=== PATIENT | male | born 1975 | race American Indian/Alaskan Native ===

== ENCOUNTER 2016-05-10 10:45 | Inpatient (IN) | payer OTHER ==
--- NOTE | 2016-05-10 11:30 | Emergency Department Report ---
Chief Complaint: Nausea/Vomiting/Diarrhea Stated Complaint: N/V Time Seen by Provider: 05/10/16 11:25 - HPI History of Present Illness: 41 y/o male complain of n/v/d x 4 days .pt state that at his job some of coworker have had the same complaint.pt complain of abdominal cramping . - ROS Review of Systems: per HPI - Exam Vital Signs: Vital Signs 05/10/16 11:01 Temperature 100.8 F H Pulse Rate 108 H Blood Pressure 109/78 O2 Sat by Pulse 99 Oximetry Physical Exam: GENERAL: The patient is well-developed and well-nourished. Patient is in NAD. HENT: Normocephalic. Atraumatic. Patient has moist mucous membranes. Throat: No erythema, swelling or exudates. EYES: Extraocular motions are intact, PERRL NECK: Supple. No meningitic signs are noted. There is no adenopathy noted. CHEST/LUNGS: Clear to auscultation bilaterally. No wheezing, rales or rhonchi noted. There is no respiratory distress noted. HEART/CARDIOVASCULAR: Regular rate and rhythm. Normal S1 S2. No murmurs, rubs , clicks, or gallops. ABDOMEN: Abdomen is soft, nontender.. Bowel sounds normoactive. There is no abdominal distention. Negative rebound tenderness. Negative Rovsing. : Deferred. SKIN: There is no rash. There is no edema. There is no diaphoresis. NEURO: The patient is A&Ox3. The patient has no focal neurologic deficits. MUSCULOSKELETAL: There is no tenderness or deformity. There is no limitation range of motion. PSYCH: Pt has appropriate mood and affect. MSE screening note: Focused history and physical exam performed. Due to findings the following was ordered: ED Disposition for MSE Condition: Stable
[2016-05-10] MEDS ORDERED: MOTRIN PO ONE (11:33)
[2016-05-10 11:45] LABS: Basophils % (Auto) 0.5 % (0.0-1.8); Eosinophils % (Auto) 0.1 % (0.0-4.3); Hematocrit 47.6 % (35.5-45.6); Hemoglobin 15.4 gm/dl (11.8-15.2); Mean Corpuscular HGB Conc 32 % (32-34); Mean Corpuscular Hemoglobin 28 pg (28-32); Mean Corpuscular Volume 86 fl (84-94); Platelet Count 243 K/mm3 (140-440); Red Blood Count 5.55 M/mm3 (3.65-5.03); Red Cell Distribution Width 12.3 % (13.2-15.2); White Blood Count 7.4 K/mm3 (4.5-11.0)
[2016-05-10] MEDS ORDERED: NACL 0.9% 1000 ML 2,000 ML IV ONE (11:49)
[2016-05-10] MEDS ORDERED: PEPCID IV ONE (11:54)
[2016-05-10] MEDS ORDERED: ZOFRAN IV ONE (11:54)
[2016-05-10 12:04] LABS: Alanine Aminotransferase 61 units/L (7-56); Albumin 4.1 g/dL (3.9-5); Albumin/Globulin Ratio 1.1 %; Alkaline Phosphatase 103 units/L (35-129); Anion Gap 22 mmol/L; BUN/Creatinine Ratio 14.16; Bilirubin,Total 0.2 mg/dL (0.1-1.2); Blood Urea Nitrogen 17 mg/dL (9-20); Calcium 8.7 mg/dL (8.4-10.2); Carbon Dioxide 25 mmol/L (22-30); Chloride 94.9 mmol/L (98-107); Glucose 85 mg/dL (75-100); Potassium 4.4 mmol/L (3.6-5.0); Sodium 137 mmol/L (137-145); Total Protein 7.8 g/dL (6.3-8.2)
--- NOTE | 2016-05-10 12:17 | Emergency Department Report ---
HPI - General Chief Complaint: Nausea/Vomiting/Diarrhea Time Seen by Provider: 05/10/16 11:47 - HPI HPI: This is a 41-year-old male who presents the emergency department with a four- day history of nausea and vomiting and to a lesser extent some diarrhea. Patient says that today he started having a generalized headache and has some photophobia. He has some mild epigastric abdominal discomfort from all the vomiting. He denies any past medical history. No recent travel or sick contacts at home. He does not have a primary care doctor. He has not taken anything for symptoms prior to presentation. ED Past Medical Hx - Social History Smoking Status: Never Smoker - Medications Home Medications: Home Medications Medication Instructions Recorded Confirmed Last Taken Type No Known Home Medications [No 05/10/16 05/10/16 Unknown History Reported Home Medications] ED Review of Systems ROS: Stated complaint: N/V Other details as noted in HPI Comment: All other systems reviewed and negative Constitutional: denies: chills, fever Eyes: other (photophobia). denies: eye pain, eye discharge ENT: denies: ear pain, throat pain Respiratory: denies: cough, shortness of breath, wheezing Cardiovascular: denies: chest pain, palpitations Gastrointestinal: abdominal pain, nausea, vomiting, diarrhea Genitourinary: denies: urgency, dysuria Musculoskeletal: denies: back pain, arthralgia Skin: denies: rash, lesions Neurological: headache. denies: weakness, numbness Physical Exam - Physical Exam Vital Signs: Vital Signs 05/10/16 11:01 Temperature 100.8 F H Pulse Rate 108 H Blood Pressure 109/78 O2 Sat by Pulse 99 Oximetry Physical Exam: GENERAL: The patient is well-developed well-nourished. HEENT: Normocephalic. Atraumatic. Extraocular motions are intact. Patient has moist mucous membranes. Pupils equal reactive to light bilaterally. NECK: Supple. Trachea is midline. CHEST/LUNGS: Clear to auscultation. There is no respiratory distress noted. HEART/CARDIOVASCULAR: Regular. There is no tachycardia. There is no gallop rub or murmur. ABDOMEN: Abdomen is soft. Mild generalized tenderness to palpation of the abdomen that is worst in the epigastrium. No guarding or rebound tenderness. No peritoneal signs. Patient has normal bowel sounds. There is no abdominal distention. SKIN: There is no rash. There is no edema. There is no diaphoresis. NEURO: The patient is awake, alert, and oriented. The patient is cooperative. The patient has no focal neurologic deficits. The patient has normal speech. MUSCULOSKELETAL: There is no tenderness or deformity. There is no limitation range of motion. There is no evidence of acute injury. ED Course Vital Signs 05/10/16 11:01 Temperature 100.8 F H Pulse Rate 108 H Blood Pressure 109/78 O2 Sat by Pulse 99 Oximetry ED Medical Decision Making - Lab Data Result diagrams: 05/10/16 11:36 05/10/16 11:36 - Radiology Data Radiology results: report reviewed CT of the abdomen and pelvis with IV contrast shows subtle central disc protrusion without stenosis at L5/S1. Focal fatty infiltration of the liver at the falciform ligament. - Medical Decision Making 41-year-old male presents with a four-day history of nausea and vomiting as well as some mild diarrhea and some occasional abdominal discomfort. He developed a headache but I believe it most likely due to his dehydration. Patient's labs show some abnormalities including a lipase of 1700 and concentrated urine with some ketones showing some dehydration. Mild elevation in transaminases but nothing significant. Due to the very elevated lipase level a CT of the abdomen and pelvis was done that did not show any signs of pancreatitis but did show some focal fatty infiltration of liver at the falciform ligament. Patient was given some IV fluid resuscitation, antinausea meds. Patient is improved but symptoms have not resolved completely. Due to the patient's lab abnormalities and dehydration, he will be admitted to hospital for continued IV fluid resuscitation, antinausea medication as needed, and further evaluation and treatment. He has been accepted for admission by the hospitalist, Dr. Abreu. - Differential Diagnosis gastroenteritis, pancreatitis, colitis, food poisoning Critical Care Time: No Critical care attestation.: If time is entered above; I have spent that time in minutes in the direct care of this critically ill patient, excluding procedure time. ED Disposition Clinical Impression: Gastroenteritis, Elevated lipase, Dehydration Abdominal pain Qualifiers: Abdominal location: generalized Qualified Code(s): R10.84 - Generalized abdominal pain Nausea & vomiting Qualifiers: Vomiting type: unspecified Vomiting Intractability: non-intractable Qualified Code(s): R11.2 - Nausea with vomiting, unspecified Disposition: OP ADMITTED IP TO THIS HOSP Is pt being admited?: Yes Condition: Stable Time of Disposition: 16:10
[2016-05-10 12:43] LABS: Lipase 1739 units/L (13-60)
--- NOTE | 2016-05-10 14:28 | Cat Scan Report ---
FINAL REPORT PROCEDURE: CT ABDOMEN PELVIS W CON TECHNIQUE: Computerized axial tomography of the abdomen and pelvis was performed after the IV injection of iodinated nonionic contrast. HISTORY: Abd pain COMPARISON: None FINDINGS: Visualized lower thorax: No significant abnormality. Liver: Focal fatty infiltration about the falciform ligament. Spleen: Normal size and attenuation. Gallbladder and biliary system: Normal. Pancreas: Normal. Adrenals: Normal. Kidneys: Normal. GI tract: Limited in evaluation without oral contrast no gross focal bowel abnormality. No bowel obstruction. Normal appendix. Lymph nodes and mesentery: Normal. Vasculature: Normal. Bladder: Normal. Reproductive organs: Normal. Peritoneum: No free fluid. Musculoskeletal structures: Subtle central disc protrusion without stenosis at L5/S1. Other: None. IMPRESSION: Subtle central disc protrusion without stenosis at L5/S1. Focal fatty infiltration of the liver at the falciform ligament
[2016-05-10] MEDS ORDERED: NACL 0.9% 1000 ML 1,000 ML IV ONE (14:33)
[2016-05-10 15:23] LABS: Bacteria,Urine 1+ /HPF (Negative); Bilirubin,Urine NEG (Negative); Blood,Urine NEG (Negative); Ketones,Urine 20 mg/dL (Negative); Leukocyte Esterase,Urine NEG (Negative); Mucus,Urine FEW /HPF; Nitrite,Urine NEG (Negative); Protein,Urine <15 mg/dL mg/dL (Negative); Urobilinogen,Urine < 2.0 mg/dL (<2.0)
[2016-05-10] MEDS ORDERED: TYLENOL PO PRN (21:34)
[2016-05-10] MEDS ORDERED: ZOFRAN IV PRN (21:34)
[2016-05-10] MEDS ORDERED: DULCOLAX PR PRN (21:34)
[2016-05-10] MEDS ORDERED: MILK OF MAGNESIA PO PRN (21:34)
[2016-05-10] MEDS ORDERED: DILAUDID IV PRN (21:34)
[2016-05-10] MEDS ORDERED: HALDOL IV PRN (21:37)
[2016-05-10] MEDS ORDERED: ATIVAN IV PRN ×2 (21:37)
--- NOTE | 2016-05-10 21:37 | Event Note ---
Date: 05/10/16 Acute pancreatitis Etoh dependence
[2016-05-10] MEDS ORDERED: D5NS 1,000 ML IV SCH (22:00)
--- NOTE | 2016-05-10 23:01 | History and Physical Report ---
CHIEF COMPLAINT: Severe abdominal pain for the last 4 days. HISTORY OF PRESENT ILLNESS: A 41-year-old male comes in with severe nausea and vomiting for 4 days with epigastric pain. The patient also complains of abdominal cramping. Questionable diarrhea present. No fever, no chills. This is the first episode. The patient drinks about 3 times a week, in moderate amount. PAST MEDICAL HISTORY: No significant past medical history. PAST SURGICAL HISTORY: None. SOCIAL HISTORY: Alcohol occasionally, 3 times a week. FAMILY HISTORY: Hypertension. CURRENT MEDICATIONS: None. REVIEW OF SYSTEMS: Severe epigastric pain, 10/10 and nausea and vomiting 3 to 4 times a day for the last 3-4 days. Questionable diarrhea. Otherwise, review of systems is essentially negative. PHYSICAL EXAMINATION: GENERAL: Young male in slight distress with abdominal pain. VITAL SIGNS: Blood pressure is 109/78, temperature 100.8, pulse is 108, sats 99%. HEENT: Unremarkable. Pupils equal and reactive. NECK: Supple, no lymphadenopathy, no thyromegaly. LUNGS: Clear to auscultation and percussion. Good air entry. CARDIOVASCULAR: S1, S2 heard. No gallop, no murmur, no rub. Apical impulse in left fifth intercostal space and midclavicular line. ABDOMEN: Tender in the epigastric region. No guarding, no rigidity. No hepatosplenomegaly. Bowel sounds are normal. Hernial orifices are normal. EXTREMITIES: Good pedal pulses. No pedal edema. Good range of motion. CENTRAL NERVOUS SYSTEM: Alert and oriented x 4. Nonfocal exam. Motor and sensory and cranial nerves are normal. Gait is normal. SKIN: Normal. LABORATORY DATA: Significant for hemoglobin of 15.4 and hematocrit of 47.6, potassium is 4.4. AST, ALT is slightly elevated at 57 and 61, lipase is 1739 and urine specific gravity is 1.054. CT of the abdomen did not show much pancreatitis. ASSESSMENT AND PLAN: 1. Acute pancreatitis. Lipase is high and the patient has clinical signs of vomiting and epigastric pain. We will keep him n.p.o., IV fluids for the time being. Also prophylactic famotidine of 20 mg IV q. 12h., Dilaudid 1 mg and Zofran 4 mg q. 3 hours p.r.n. for pain. 2. Dehydration. IV fluids for the time being. ETOH dependence. [facility] protocol initiated. 3. Deep venous thrombosis prophylaxis, Lovenox 40 mg subcutaneous daily. [facility]# [id number] [facility]
[2016-05-11] MEDS: PEPCID IV SCH ×3 (00:22→22:17)
--- NOTE | 2016-05-11 00:35 | Admit Criteria Form ---
Admission Criteria Documentation: PANCREATITIS Clinical Indications for Admission to Inpatient Care (Place 'X' for any and all applicable criteria): Admission is indicated for ANY ONE of the following (1)(2)(3)(4): [X ]I. Acute pancreatitis[A] as indicated by 2 or more of the following: [ X]a) Abdominal pain (eg, epigastric, left upper quadrant) [ X]b) Serum amylase or serum lipase greater than 3 times the upper limit of normal [ ]c) Characteristic findings from abdominal imaging (eg, pancreatic inflammation, pancreatic necrosis, peripancreatic fluid collection)[B] [ ]II. Pancreatitis (acute or chronic) requiring inpatient care as indicated by 1 or more of the following: [ ]a) Inability to maintain oral hydration Hypoxemia [ ]b) Evidence of infection (eg, fever, peripancreatic abscess) [ ]c) Severe pain requiring acute inpatient management [ ]d) Hemodynamic instability [ ]e) Hypoxemia [ ]f) Acute renal failure [ ]g) Severe electrolyte abnormalities Extended stay beyond goal length of stay may be needed for (1)(11) [ ]a) Severe acute pancreatitis (10)(19) [ ]b) Persistent symptoms, ascites, or pleural effusion [ ]c) Abdominal compartment syndrome (10) [ ]d) Late complications [ ]e) Acute renal failure (27) [ ]f) Gallstones in gallbladder The original [employer] content created by [employer] has been revised. The portions of the content which have been revised are identified through the use of italic text or in bold,and [facility] has neither reviewed nor approved the modified material.All other unmodified content is copyright [employer]. Please see references footnoted in the original [employer] edition 2016 Admission Criteria Met: Yes
--- NOTE | 2016-05-11 10:51 | Consultation ---
History of Present Illness Consult date: 05/11/16 Reason for consult: other (pancreatitis) Requesting physician: MARCO GARCIA - History of present illness History of present illness: 41 y/o male admitted with pancreatitis, dehidration, nausea and vomiting. Denies abdominal pain. Reports that drinks a six pack three times per week. Past History Past Medical History: No medical history Past Surgical History: No surgical history Social history: alcohol abuse (a six pack three times per week.) Medications and Allergies Allergies Allergy/AdvReac Type Severity Reaction Status Date / Time No Known Allergies Allergy Verified 02/19/13 21:11 Home Medications Medication Instructions Recorded Confirmed Last Taken Type No Known Home Medications [No 05/10/16 05/10/16 Unknown History Reported Home Medications] Active Meds: Active Medications Acetaminophen (Tylenol) 650 mg PO Q4H PRN PRN Reason: Pain MILD(1-3)/Fever >100.5/TYSON Last Admin: 05/11/16 09:31 Dose: 650 mg Bisacodyl (Dulcolax) 10 mg SC QDAY PRN PRN Reason: Constipation unrelieved by MOM Famotidine (Pepcid) 20 mg IV BID FILIPE Last Admin: 05/11/16 09:31 Dose: 20 mg Haloperidol Lactate (Haldol) 5 mg IV Q1H PRN PRN Reason: Unrespon. to mult. doses BZD's Hydromorphone HCl (Dilaudid) 1 mg IV Q3H PRN PRN Reason: Pain , Severe (7-10) Last Admin: 05/11/16 00:32 Dose: 1 mg Dextrose/Sodium Chloride (D5ns) 1,000 mls @ 100 mls/hr IV DIRECT FILIPE Dextrose/Lactated Ringer's (D5lr) 1,000 mls @ 125 mls/hr IV DIRECT FILIPE Lorazepam (Ativan) 2 mg IV Q1H PRN PRN Reason: CIWA-Ar 8-15 Lorazepam (Ativan) 4 mg IV Q1H PRN PRN Reason: CIWA-Ar 16-25 Magnesium Hydroxide (Milk Of Magnesia) 30 ml PO Q4H PRN PRN Reason: Constipation Ondansetron HCl (Zofran) 4 mg IV Q3H PRN PRN Reason: N/V unrelieved by Reglan Last Admin: 05/11/16 00:32 Dose: 4 mg Review of Systems - EENT Ears, nose, mouth and throat: nasal congestion - Respiratory cough, congestion - Gastrointestinal no abdominal pain Exam Vital Signs Temp Pulse BP Pulse Ox 100.8 F H 108 H 109/78 99 05/10/16 11:01 05/10/16 11:01 05/10/16 11:01 05/10/16 11:01 - General physical appearance Positive: well developed, well nourished, no distress - Eyes Positive: PERRL, normal occular movement - ENT Positive: normal mucosa - Neck Positive: no masses, no bruits, trachea midline, no venous distension - Respiratory Positive: normal expansion, normal respiratory effort, clear to auscultation - Cardiovascular Rhythm: regular Heart Sounds: Present: S1 & S2. Absent: rub, click - Extremities Extremities: no ischemia, pulses symmetrical, No edema - Abdomen Abdomen: Present: soft, bowel sounds normal. Absent: tender, distended - Genitourinary Male Genitourinary: deferred - Integumentary no rash, no growths, no abnormal pigmentation - Neurologic Neurologic: alert and oriented to time, place and person, motor strength and sensation are grossly intact - Musculoskeletal normal gait, normal posture - Psychiatric Psychiatric: appropriate mood/affect, intact judgment & insight Results - Labs 05/10/16 11:36 05/10/16 11:36 - Imaging CT scan - abdomen: report reviewed Assessment and Plan Imp: Elevated lipase. Gastroenteritis. Dehidration. With no abdominal pain and normal pancreas on abdominal CT Pancreatitis is very doubtful. RECOMMENDATIONS: IV fluids. Repeat Lipase in am. Consider gallbladder ultrasound to complete workup.
[2016-05-11] MEDS ORDERED: ZOFRAN IV PRN ×2 (12:15→12:27)
--- NOTE | 2016-05-11 12:26 | Progress Note ---
Assessment and Plan Assessment and plan: Patient is a 41-year-old man with a history of alcohol dependency who presents with nausea, vomiting and epigastric abdominal pain with productive cough. CT abdomen and pelvis with IV contrast showed subtle central disc protrusion without stenosis L5-S1, fatty liver but normal pancreas. Lipase was 1739. 1. Sepsis present on admission: Ordered blood cultures, start IV vancomycin for sepsis with IV Zosyn for suspected aspiration pneumonia, check chest x-ray 2. Elevated lipase with normal pancreas on CT, doubt clinical significant pancreatitis: Seen by general surgery, ordered a gallbladder ultrasound, to IV fluids, pain medicines and bowel rest for now 3. Productive cough, suspected aspiration pneumonia present on admission, 4. Alcohol dependency with evidence of fatty liver: Counseling done, wa protocol, add thiamine 5. DVT prophylaxis: SCDs and subcutaneous heparin Full code Disposition: Continue inpatient care History Interval history: Patient seen and examined. Follow up on nausea vomiting. Overnight uneventful. No cp, sob, or severe headaches. Imaging, old records, testing, labs, nursing notes reviewed. Patient main complaint is this productive yellow-brown sputum cough which is causing nausea vomiting and epigastric abdominal pain. He is febrile. Hospitalist Physical - Physical exam Narrative exam: GEN: Toxic ill-appearing, diaphoretic, NAD, AWAKE, ALERT, ORIENTATED 3 HEENT: NCAT, PERRL, EOMI, OP CLEAR NECK: SUPPLE, NO THYROMEGALY, NO JVD, NO LAD CVS: Regular tachycardic NORMAL S1S2 LUNGS/CHEST: Coarse breath sounds bilaterally with fine inspiratory crackles at bases, NORMAL CHEST EXPANSION B, adequate AIR ENTRY B ABD: SOFT, MILD EPIGASTRIC TENDERNESS WITHOUT DISTENTION, GBS, NO REBOUND OR GUARDING EXT/SKIN: NO SIGNIFICANT EDEMA OR RASH MSK: FROM X 4 EXTREMITIES NEURO: CN 2-12 GROSSLY INTACT, NO FOCAL DEFICITS PSY: CALM - Constitutional Vitals: Temp Pulse Resp BP Pulse Ox 102 F H 105 H 20 119/70 95 05/11/16 08:26 05/11/16 08:26 05/11/16 08:26 05/11/16 08:26 05/11/16 08:26 Results - Labs CBC & Chem 7: 05/10/16 11:36 05/10/16 11:36 Labs: Laboratory Last Values WBC 7.4 K/mm3 (4.5-11.0) 05/10/16 11:36 RBC 5.55 M/mm3 (3.65-5.03) H 05/10/16 11:36 Hgb 15.4 gm/dl (11.8-15.2) H 05/10/16 11:36 Hct 47.6 % (35.5-45.6) H 05/10/16 11:36 MCV 86 fl (84-94) 05/10/16 11:36 MCH 28 pg (28-32) 05/10/16 11:36 MCHC 32 % (32-34) 05/10/16 11:36 RDW 12.3 % (13.2-15.2) L 05/10/16 11:36 Plt Count 243 K/mm3 (140-440) 05/10/16 11:36 Lymph % (Auto) 8.7 % (13.4-35.0) L 05/10/16 11:36 Bonner % (Auto) 8.0 % (0.0-7.3) H 05/10/16 11:36 Eos % (Auto) 0.1 % (0.0-4.3) 05/10/16 11:36 Baso % (Auto) 0.5 % (0.0-1.8) 05/10/16 11:36 Lymph # 0.6 K/mm3 (1.2-5.4) L 05/10/16 11:36 Bonner # 0.6 K/mm3 (0.0-0.8) 05/10/16 11:36 Eos # 0.0 K/mm3 (0.0-0.4) 05/10/16 11:36 Baso # 0.0 K/mm3 (0.0-0.1) 05/10/16 11:36 Seg Neutrophils % 82.7 % (40.0-70.0) H 05/10/16 11:36 Seg Neutrophils # 6.1 K/mm3 (1.8-7.7) 05/10/16 11:36 Sodium 137 mmol/L (137-145) 05/10/16 11:36 Potassium 4.4 mmol/L (3.6-5.0) 05/10/16 11:36 Chloride 94.9 mmol/L (98-107) L 05/10/16 11:36 Carbon Dioxide 25 mmol/L (22-30) 05/10/16 11:36 Anion Gap 22 mmol/L 05/10/16 11:36 BUN 17 mg/dL (9-20) 05/10/16 11:36 Creatinine 1.2 mg/dL (0.8-1.5) 05/10/16 11:36 Estimated GFR > 60 ml/min 05/10/16 11:36 BUN/Creatinine Ratio 14.16 % 05/10/16 11:36 Glucose 85 mg/dL (75-100) 05/10/16 11:36 Calcium 8.7 mg/dL (8.4-10.2) 05/10/16 11:36 Total Bilirubin 0.2 mg/dL (0.1-1.2) 05/10/16 11:36 AST 57 units/L (5-40) H 05/10/16 11:36 ALT 61 units/L (7-56) H 05/10/16 11:36 Alkaline Phosphatase 103 units/L (35-129) 05/10/16 11:36 Total Protein 7.8 g/dL (6.3-8.2) 05/10/16 11:36 Albumin 4.1 g/dL (3.9-5) 05/10/16 11:36 Albumin/Globulin Ratio 1.1 % 05/10/16 11:36 Lipase 1739 units/L (13-60) H 05/10/16 11:36 Urine Color Yellow (Yellow) 05/10/16 13:51 Urine Turbidity Clear (Clear) 05/10/16 13:51 Urine pH 5.0 (5.0-7.0) 05/10/16 13:51 Ur Specific [place] 1.054 (1.003-1.030) H 05/10/16 13:51 Urine Protein <15 mg/dl mg/dL (Negative) 05/10/16 13:51 Urine Glucose (UA) Neg mg/dL (Negative) 05/10/16 13:51 Urine Ketones 20 mg/dL (Negative) 05/10/16 13:51 Urine Blood Neg (Negative) 05/10/16 13:51 Urine Nitrite Neg (Negative) 05/10/16 13:51 Urine Bilirubin Neg (Negative) 05/10/16 13:51 Urine Urobilinogen < 2.0 mg/dL (<2.0) 05/10/16 13:51 Ur Leukocyte Esterase Neg (Negative) 05/10/16 13:51 Urine WBC (Auto) 1.0 /HPF (0.0-6.0) 05/10/16 13:51 Urine RBC (Auto) 5.0 /HPF (0.0-6.0) 05/10/16 13:51 U Epithel Cells (Auto) < 1.0 /HPF (0-13.0) 05/10/16 13:51 Urine Bacteria (Auto) 1+ /HPF (Negative) 05/10/16 13:51 Urine Mucus Few /HPF 05/10/16 13:51 - Imaging and Cardiology CT scan - abdomen: report reviewed
[2016-05-11] MEDS: D5LR 1,000 ML IV SCH (12:48)
[2016-05-11] MEDS ORDERED: VANCOMYCIN PHARMACY TO DOSE IV SCH (13:00)
--- NOTE | 2016-05-11 13:24 | XRay Report ---
ROUTINE CHEST, TWO VIEWS: HISTORY: Pneumonia, shortness of breath. The trachea, heart, mediastinal contour, lung ahmadi and bony thorax are unremarkable. IMPRESSION: Unremarkable chest x-ray.
[2016-05-11] MEDS: VANCOMYCIN VIAL 1,250 MG in NACL 0.9% 250ML 250 ML IV SCH (14:33)
[2016-05-11] MEDS: ZOSYN/NS 4.5GM/100ML 100 ML IV SCH ×2 (14:34→22:16)
[2016-05-11] MEDS: TYLENOL PO PRN (20:43)
[2016-05-12] MEDS: VANCOMYCIN VIAL 1,250 MG in NACL 0.9% 250ML 250 ML IV SCH ×2 (02:25→13:45)
[2016-05-12] MEDS: TYLENOL PO PRN (05:46)
[2016-05-12] MEDS: ZOSYN/NS 4.5GM/100ML 100 ML IV SCH ×2 (05:47→13:45)
[2016-05-12 06:26] LABS: Hematocrit 42.9 % (35.5-45.6); Mean Corpuscular HGB Conc 33 % (32-34); Mean Corpuscular Hemoglobin 28 pg (28-32); Mean Corpuscular Volume 85 fl (84-94); Platelet Count 229 K/mm3 (140-440); Red Blood Count 5.04 M/mm3 (3.65-5.03); Red Cell Distribution Width 12.4 % (13.2-15.2)
[2016-05-12] MEDS: TESSALON PERLES PO PRN ×3 (06:35→18:58)
[2016-05-12 06:46] LABS: Alanine Aminotransferase 32 units/L (7-56); Albumin 3.4 g/dL (3.9-5); Albumin/Globulin Ratio 0.9 %; Alkaline Phosphatase 73 units/L (35-129); Amylase 451 units/L (27-131); Anion Gap 17 mmol/L; BUN/Creatinine Ratio 9.09; Bilirubin,Total 0.3 mg/dL (0.1-1.2); Blood Urea Nitrogen 10 mg/dL (9-20); Calcium 8.1 mg/dL (8.4-10.2); Carbon Dioxide 25 mmol/L (22-30); Cholesterol 140 mg/dL (50-199); Glucose 82 mg/dL (75-100); HDL Cholesterol 41 mg/dL (40-59); LDL Cholesterol,Direct 73 mg/dL (50-130); Potassium 3.9 mmol/L (3.6-5.0); Sodium 136 mmol/L (137-145); Triglycerides 131 mg/dL (2-149)
--- NOTE | 2016-05-12 09:24 | Ultrasound Report ---
ULTRASOUND ABDOMEN LIMITED: HISTORY: Gallstones. TECHNIQUE: Transabdominal ultrasound with color Doppler interrogation. FINDINGS: Compared to the CT abdomen and pelvis with contrast dated 05/10/16. The liver appears normal size, contour and echotexture. There is a focal hyperechoic area near the falciform ligament measuring less than 2 cm. This could represent focal fatty change or possibly a small cavernous hemangioma. No suspicious liver mass or signs of liver disease. The biliary system is unremarkable. No evidence for gallstones, wall thickening or surrounding fluid. The CBD measures 4.1 mm. The right kidney is unremarkable and measures 11.1 cm. The pancreas is obscured by bowel gas. The proximal aorta measures 1.7 cm. No ascites. IMPRESSION: No evidence for cholelithiasis. Focal fatty change versus small cavernous hemangioma in the liver near the falciform ligament, as described. The pancreas is obscured on ultrasound but has an unremarkable appearance on CT.
[2016-05-12] MEDS ORDERED: PROTONIX IV SCH (10:00)
--- NOTE | 2016-05-12 10:31 | Progress Note ---
Assessment and Plan Impression: Resolving elevation off lipase and amylase. Plan: I will try clear liquids. Repeat lipase and amylase in the morning. Subjective Patient Reports: Positive: no new complaints, other (painless abdomen) Objective Vital Signs - 12hr 05/12/16 05/12/16 05/12/16 02:27 05:46 07:00 Temperature 98.9 F 100.3 F H Pulse Rate [ 77 98 H Left Radial] Respiratory 20 20 20 Rate Blood Pressure 109/71 117/70 [Left Radial Artery] O2 Sat by Pulse 97 98 Oximetry - Abdomen soft, not tender, bowel sounds normal - Labs 05/12/16 05:32 05/12/16 05:32 Diabetes panel 05/12/16 Range/Units 05:32 Sodium 136 L (137-145) mmol/L Potassium 3.9 (3.6-5.0) mmol/L Chloride 98.0 (98-107) mmol/L Carbon Dioxide 25 (22-30) mmol/L BUN 10 (9-20) mg/dL Creatinine 1.1 (0.8-1.5) mg/dL Glucose 82 (75-100) mg/dL Calcium 8.1 L (8.4-10.2) mg/dL AST 33 (5-40) units/L ALT 32 (7-56) units/L Alkaline Phosphatase 73 (35-129) units/L Total Protein 7.0 (6.3-8.2) g/dL Albumin 3.4 L (3.9-5) g/dL Triglycerides 131 (2-149) mg/dL HDL Cholesterol 41 (40-59) mg/dL Calcium panel 05/12/16 Range/Units 05:32 Calcium 8.1 L (8.4-10.2) mg/dL Albumin 3.4 L (3.9-5) g/dL Pituitary panel 05/12/16 Range/Units 05:32 Sodium 136 L (137-145) mmol/L Potassium 3.9 (3.6-5.0) mmol/L Chloride 98.0 (98-107) mmol/L Carbon Dioxide 25 (22-30) mmol/L BUN 10 (9-20) mg/dL Creatinine 1.1 (0.8-1.5) mg/dL Glucose 82 (75-100) mg/dL Calcium 8.1 L (8.4-10.2) mg/dL Adrenal panel 05/12/16 Range/Units 05:32 Sodium 136 L (137-145) mmol/L Potassium 3.9 (3.6-5.0) mmol/L Chloride 98.0 (98-107) mmol/L Carbon Dioxide 25 (22-30) mmol/L BUN 10 (9-20) mg/dL Creatinine 1.1 (0.8-1.5) mg/dL Glucose 82 (75-100) mg/dL Calcium 8.1 L (8.4-10.2) mg/dL Total Bilirubin 0.3 (0.1-1.2) mg/dL AST 33 (5-40) units/L ALT 32 (7-56) units/L Alkaline Phosphatase 73 (35-129) units/L Total Protein 7.0 (6.3-8.2) g/dL Albumin 3.4 L (3.9-5) g/dL
[2016-05-12] MEDS: D5LR 1,000 ML IV SCH (11:28)
[2016-05-12] MEDS: PEPCID IV SCH ×2 (11:30→21:31)
[2016-05-12] MEDS: VITAMIN B-1 100 MG in NACL 0.9% 50 ML IV SCH (13:45)
--- NOTE | 2016-05-12 15:37 | Progress Note ---
Assessment and Plan Assessment and plan: 1. Acute Etoh induced pancreatitis Continue IV fluids, pain meds, antiemetics, surgery is appreciated, will advance to clear liquid diet today. Right upper quadrant sono and CT scans did not show any gallstones. 2. SIRS Due to #1, continue supportive care, discontinue antibiotics as infection workup has been negative. Which included chest x-ray, urinalysis. Blood cultures which were all negative 3. Alcohol dependency with evidence of fatty liver: Counseling done, [facility] protocol, add thiamine History Interval history: Continues to have abdominal pain, notes that he has an appetite now, nausea and vomiting is now resolved. Hospitalist Physical - Physical exam Narrative exam: General: Patient appears well in no distress HEENT: MMM, EOMI cardiac: S1-S2 heard lungs: clear to auscultation, abdomen: soft, epigastric tenderness, nondistended bowel sounds positive extremities: no edema clubbing or cyanosis Skin: no rash or lesion Neuro: no focal deficit Psych: appropriate behavior and mood, cognition intact - Constitutional Vitals: Temp Pulse Resp BP Pulse Ox 100.3 F H 98 H 20 117/70 98 05/12/16 07:00 05/12/16 07:00 05/12/16 07:00 05/12/16 07:00 05/12/16 07:00 Results - Labs CBC & Chem 7: 05/12/16 05:32 05/12/16 05:32 Labs: Laboratory Last Values WBC 7.0 K/mm3 (4.5-11.0) 05/12/16 05:32 RBC 5.04 M/mm3 (3.65-5.03) H 05/12/16 05:32 Hgb 14.0 gm/dl (11.8-15.2) 05/12/16 05:32 Hct 42.9 % (35.5-45.6) 05/12/16 05:32 MCV 85 fl (84-94) 05/12/16 05:32 MCH 28 pg (28-32) 05/12/16 05:32 MCHC 33 % (32-34) 05/12/16 05:32 RDW 12.4 % (13.2-15.2) L 05/12/16 05:32 Plt Count 229 K/mm3 (140-440) 05/12/16 05:32 Lymph % (Auto) 8.7 % (13.4-35.0) L 05/10/16 11:36 [place] % (Auto) 8.0 % (0.0-7.3) H 05/10/16 11:36 Eos % (Auto) 0.1 % (0.0-4.3) 05/10/16 11:36 Baso % (Auto) 0.5 % (0.0-1.8) 05/10/16 11:36 Lymph # 0.6 K/mm3 (1.2-5.4) L 05/10/16 11:36 [place] # 0.6 K/mm3 (0.0-0.8) 05/10/16 11:36 Eos # 0.0 K/mm3 (0.0-0.4) 05/10/16 11:36 Baso # 0.0 K/mm3 (0.0-0.1) 05/10/16 11:36 Seg Neutrophils % 82.7 % (40.0-70.0) H 05/10/16 11:36 Seg Neutrophils # 6.1 K/mm3 (1.8-7.7) 05/10/16 11:36 Sodium 136 mmol/L (137-145) L 05/12/16 05:32 Potassium 3.9 mmol/L (3.6-5.0) 05/12/16 05:32 Chloride 98.0 mmol/L (98-107) 05/12/16 05:32 Carbon Dioxide 25 mmol/L (22-30) 05/12/16 05:32 Anion Gap 17 mmol/L 05/12/16 05:32 BUN 10 mg/dL (9-20) 05/12/16 05:32 Creatinine 1.1 mg/dL (0.8-1.5) 05/12/16 05:32 Estimated GFR > 60 ml/min 05/12/16 05:32 BUN/Creatinine Ratio 9.09 % 05/12/16 05:32 Glucose 82 mg/dL (75-100) 05/12/16 05:32 Calcium 8.1 mg/dL (8.4-10.2) L 05/12/16 05:32 Total Bilirubin 0.3 mg/dL (0.1-1.2) 05/12/16 05:32 AST 33 units/L (5-40) 05/12/16 05:32 ALT 32 units/L (7-56) 05/12/16 05:32 Alkaline Phosphatase 73 units/L (35-129) 05/12/16 05:32 Total Protein 7.0 g/dL (6.3-8.2) 05/12/16 05:32 Albumin 3.4 g/dL (3.9-5) L 05/12/16 05:32 Albumin/Globulin Ratio 0.9 % 05/12/16 05:32 Triglycerides 131 mg/dL (2-149) 05/12/16 05:32 Cholesterol 140 mg/dL (50-199) 05/12/16 05:32 LDL Cholesterol Direct 73 mg/dL (50-130) 05/12/16 05:32 HDL Cholesterol 41 mg/dL (40-59) 05/12/16 05:32 Cholesterol/HDL Ratio 3.41 % 05/12/16 05:32 Amylase 451 units/L (27-131) H 05/12/16 05:32 Lipase 1014 units/L (13-60) H 05/12/16 05:32 Urine Color Yellow (Yellow) 05/10/16 13:51 Urine Turbidity Clear (Clear) 05/10/16 13:51 Urine pH 5.0 (5.0-7.0) 05/10/16 13:51 Ur Specific [place] 1.054 (1.003-1.030) H 05/10/16 13:51 Urine Protein <15 mg/dl mg/dL (Negative) 05/10/16 13:51 Urine Glucose (UA) Neg mg/dL (Negative) 05/10/16 13:51 Urine Ketones 20 mg/dL (Negative) 05/10/16 13:51 Urine Blood Neg (Negative) 05/10/16 13:51 Urine Nitrite Neg (Negative) 05/10/16 13:51 Urine Bilirubin Neg (Negative) 05/10/16 13:51 Urine Urobilinogen < 2.0 mg/dL (<2.0) 05/10/16 13:51 Ur Leukocyte Esterase Neg (Negative) 05/10/16 13:51 Urine WBC (Auto) 1.0 /HPF (0.0-6.0) 05/10/16 13:51 Urine RBC (Auto) 5.0 /HPF (0.0-6.0) 05/10/16 13:51 U Epithel Cells (Auto) < 1.0 /HPF (0-13.0) 05/10/16 13:51 Urine Bacteria (Auto) 1+ /HPF (Negative) 05/10/16 13:51 Urine Mucus Few /HPF 05/10/16 13:51
[2016-05-12] MEDS: HEPARIN SUB-Q SCH (21:31)
[2016-05-13] MEDS: D5LR 1,000 ML IV SCH (02:28)
[2016-05-13] MEDS: TYLENOL PO PRN (03:53)
--- NOTE | 2016-05-13 09:14 | Discharge Summary ---
Providers - Providers Date of Admission: 05/10/16 18:26 Attending physician: WINTER ESTRADA MD 05/10/16 21:35 Consult to Physician [CONS] Routine Consulting Provider: GEOVANNI CASTORENA Reason For Exam: pancreatitis Place consult to:: DR. CASTORENA Notified:: [employer] Phone number called:: [phone] Was contact made?: Yes If yes, spoke with:: DAMIAN Time called:: 09:14 Comment:: INNA NOTIFIED Primary care physician: HADOOP ADMINISTRATOR Hospitalization Condition: Stable Hospital course: This is a 41-year-old man with a history of alcohol abuse who presented with 4 days of nausea vomiting and abdominal pain. He had imaging that showed inflamed pancreas along with laboratory findings are very elevated lipase. He clinically had acute alcoholic induced pancreatitis. He treated with bowel rest IV fluids pain medications and antiemetics. He clinically improved. Of note he was counseled about cessation of alcohol, he verbalized understanding. Also gallbladder sonogram was done to rule out gallstones and it was negative for gallstones. He was found to have acute bronchitis and rx with steroids, inhaler and abx 1. Acute Etoh induced pancreatitis 2. SIRS Due to #1, Infectious workup was negative, which included UA blood cultures and chest x- ray., Underlying cause which was acute pancreatitis was treated. 3. Alcohol dependency with evidence of fatty liver: 4. Acute bronchitis Disposition: DISCHARGED TO HOME OR SELFCARE Time spent for discharge: 35 minutes Core Measure Documentation - Palliative Care Palliative Care/ Comfort Measures: Not Applicable - Core Measures Any of the following diagnoses?: none Exam - Constitutional Vitals: Temp Pulse Resp BP Pulse Ox 99.2 F 80 20 110/68 100 05/13/16 07:00 05/13/16 07:00 05/13/16 07:00 05/13/16 07:00 05/13/16 07:00 General appearance: Present: no acute distress, well-nourished - EENT Eyes: Present: PERRL ENT: hearing intact, clear oral mucosa - Neck Neck: Present: supple, normal ROM - Respiratory Respiratory effort: normal Respiratory: bilateral: CTA - Cardiovascular Heart Sounds: Present: S1 & S2. Absent: rub, click - Extremities Extremities: pulses symmetrical, No edema Peripheral Pulses: within normal limits - Abdominal General gastrointestinal: Present: soft, non-tender, non-distended, normal bowel sounds Male genitourinary: Present: normal - Integumentary Integumentary: Present: clear, warm, dry - Musculoskeletal Musculoskeletal: gait normal, strength equal bilaterally - Psychiatric Psychiatric: appropriate mood/affect, intact judgment & insight - Neurologic Neurologic: CNII-XII intact, moves all extremities Plan Activity: no restrictions Diet: regular Follow up with: PRIMARY CARE,MD [Primary Care Provider] - 3-5 Days Prescriptions: Ipratropium/Albuter (Nf) [Combivent (Nf)] 2 puff IH QID #1 inha predniSONE [Deltasone] 20 mg PO QDAY #5 tab Benzonatate [Tessalon Perles] 100 mg PO Q6HR PRN #30 capsule PRN Reason: Cough Thiamine [Vitamin B-1] 50 mg PO QDAY #30 tablet Azithromycin [Zithromax Z-ERICA] 0 mg PO DAILY #6 tab
--- NOTE | 2016-05-13 11:20 | Progress Note ---
Assessment and Plan Impression: Resolving pancreatitis. Operative respiratory infection, r/o bronchitis. Plan: May go home on low-fat diet from my point of view. Stressed to patient the importance of quitting any type of alcohol intake due to the present resulting episode of pancreatitis in the presence of fatty liver. Subjective Date of service: 05/13/16 Narrative: Tolerating diet. Denies abdominal pain. Reports persistent cough with expectoration. Objective Vital Signs - 12hr 05/13/16 05/13/16 05/13/16 00:00 03:53 07:00 Temperature 98.9 F 99.2 F Pulse Rate [ 75 80 Left Radial] Respiratory 20 18 20 Rate Blood Pressure 112/68 110/68 [Left Radial Artery] O2 Sat by Pulse 95 100 Oximetry - Abdomen soft, not tender, bowel sounds normal, distended, rebound, guarding - Labs 05/12/16 05:32 05/12/16 05:32
[2016-05-13] MEDS: VITAMIN B-1 100 MG in NACL 0.9% 50 ML IV SCH (11:39)
[2016-05-13] MEDS: PEPCID IV SCH (11:40)
[2016-05-13] MEDS: HEPARIN SUB-Q SCH (11:40)
[2016-05-13] MEDS: TESSALON PERLES PO PRN (11:57)
[2016-05-13 12:26] VITALS: BP 125/74
[2016-05-13] MEDS ORDERED: PROVENTIL IH ONE (14:00)
[2016-05-13] MEDS ORDERED: ZITHROMAX PO ONE (14:00)
[2016-05-14] MEDS ORDERED: PEPCID PO SCH (10:00)
[2016-05-14] MEDS ORDERED: VITAMIN B-1 PO SCH (10:00)
== END 2016-05-13 17:45 | disposition home or self-care (01) | DRG 871 ==
LOC: ED 10:45 → 3A 18:26
PROVIDERS: ADMIT Internal Medicine; ATTEND Internal Medicine
DX: A41.9 Sepsis, unspecified organism (principal); K85.20 Alcohol induced acute pancreatitis without necrosis or infection; K76.0 Fatty (change of) liver, not elsewhere classified; F17.210 Nicotine dependence, cigarettes, uncomplicated; F10.20 Alcohol dependence, uncomplicated; Y90.9 Presence of alcohol in blood, level not specified; J20.9 Acute bronchitis, unspecified; E86.0 Dehydration; Z82.49 Family history of ischemic heart disease and other diseases of the circulatory system
CPT/HCPCS: 36415; 71020; 74177; 76705; 80048; 80053; 80061; 81001; 82150; 83690; 85025; 85027; 87040; 94640; 96374; 96375; J1170; J1644; J2405; J2543; J3370; J3411; J7030; J7050; J7121; Q9967